=== PATIENT | male | born 1940 | race Caucasian/White ===

== ENCOUNTER 2016-06-02 07:12 | Day surgery (SDC) | payer MEDICARE ==
[2016-06-02] MEDS: Lactated Ringers 1,000 ML IV SCH ×2 (08:05→11:10)
[2016-06-02] MEDS ORDERED: ceFAZolin 2 GM in Sodium Chloride 0.9% 100 ML IV ONE (08:30)
[2016-06-02] MEDS ORDERED: Propofol 200 MG/20 ML SDV IV ONE (08:45)
[2016-06-02] MEDS ORDERED: Midazolam 1 MG/ML 2 ML SDV IV ONE (08:45)
[2016-06-02] MEDS ORDERED: Succinylcholine 200 MG/10 ML MDV IV ONE (08:45)
[2016-06-02] MEDS ORDERED: Neostigmine Methylsulfate 1 MG/ML 5 ML Syringe IV ONE (08:45)
[2016-06-02] MEDS ORDERED: Rocuronium 100 MG/10 ML MDV IV ONE (08:45)
[2016-06-02] MEDS ORDERED: Glycopyrrolate 0.2 MG/ML 5 ML MDV IV ONE (08:45)
[2016-06-02] MEDS ORDERED: fentaNYL 100 MCG/2 ML SDV IV ONE (08:45)
[2016-06-02] MEDS ORDERED: ePHEDrine 50 MG/ML SDV IV ONE (08:45)
[2016-06-02] MEDS ORDERED: Ketorolac 30 MG/ML SDV IVPUSH ONE (08:45)
[2016-06-02] MEDS ORDERED: Ondansetron 4 MG/2 ML SDV IVPUSH ONE (08:45)
[2016-06-02] MEDS ORDERED: Lidocaine 1% with EPINEPHrine 1:100,000 20 ML MDV INFILT ONE (09:06)
[2016-06-02] MEDS ORDERED: Bupivacaine 0.5% 30 ML SDV INFILT ONE (09:07)
--- NOTE | 2016-06-02 09:21 | PCM.OPNOTE ---
- General Post-Op/Procedure Note Date of Surgery/Procedure: 06/02/16 Operative Procedure(s): incisional hernia repair Findings: 1 cm defect repaired primarily Pre Op Diagnosis: incisional hernia ant abd wall Post-Op Diagnosis: Same Anesthesia Technique: General ET tube, Local (6 ml 1 % lido with epi/0.5% bufipicaine) Primary Surgeon: Skyler Camp Anesthesia Provider: Girish Gibson Pathology: none Complications: None Condition: Good Free Text/Narrative:: see dictation [id number]
--- NOTE | 2016-06-02 13:18 | OR ---
DATE OF OPERATION: 06/02/2016 SURGEON: Skyler Camp MD PROCEDURE PERFORMED: Incisional hernia repair. PREOPERATIVE DIAGNOSIS: Incisional hernia, status post open Yazan fundoplication. POSTOPERATIVE DIAGNOSIS: Incisional hernia, status post open Yazan fundoplication. INDICATIONS FOR PROCEDURE: This is a 75-year-old white male, who has a small palpable defect just below his umbilicus. He is status post an open Yazan fundoplication. This causes pain on occasion, and he was offered and accepted repair. INTRAOPERATIVE FINDINGS: As follows: A 1 cm defect was replaced repaired, primarily with interrupted 0 Ethibond. A total of 6 mL of 1:1 mixture of 1% lidocaine with epinephrine and 0.5% bupivacaine was used for the procedure. DESCRIPTION OF OPERATION: After an excellent general anesthetic was administered, the patient was prepped and draped in usual sterile manner. The area over the palpated defect was infiltrated with our local. A 3 cm incision was made over the defect, and careful dissection was carried out. The defect was exposed, and as mentioned was approximately a centimeter in size. Surrounding subcu tissue was dissected free. We actually opened the incision a little further and debrided the edges, and then this defect was closed with interrupted 0 Ethibond, approximating [id number]. The skin was then closed with a running subcu 4-0 Vicryl. Steri-Strips and a Band-Aid was applied. The patient tolerated the procedure well and was taken to recovery room in good condition. /[id number] SELENE/JONAS
[2016-06-02 13:27] VITALS: BP 126/74
== END 2016-06-02 12:44 | disposition home or self-care (01) ==
LOC: FB.SDS 07:12
PROVIDERS: ATTEND Surgery
DX: K43.2 Incisional hernia without obstruction or gangrene (principal); Z98.890 Other specified postprocedural states; Z79.82 Long term (current) use of aspirin; Z79.899 Other long term (current) drug therapy; Z88.8 Allergy status to other drugs, medicaments and biological substances; Z87.891 Personal history of nicotine dependence
CPT/HCPCS: 00752; 49560; J0330; J0690; J1885; J2250; J2405; J2704; J3010; J7030; J7120

== ENCOUNTER 2017-02-22 09:50 | Day surgery (SDC) | payer MEDICARE ==
[~2017-02-22 09:50] MED LIST: Lactated Ringers 1,000 ML IV SCH
[2017-02-22] MEDS ORDERED: Lidocaine 2% 100 MG/5 ML Syringe IVPUSH ONE (11:15)
[2017-02-22] MEDS ORDERED: Propofol 200 MG/20 ML SDV IV ONE (11:15)
[2017-02-22] MEDS ORDERED: Midazolam 1 MG/ML 2 ML SDV IV ONE (11:15)
--- NOTE | 2017-02-22 11:32 | PCM.OPNOTE ---
- General Post-Op/Procedure Note Date of Surgery/Procedure: 02/22/17 Operative Procedure(s): egd with bx Findings: intact Yazan gastroduodenitis Pre Op Diagnosis: abd pain and bloating. s/p Yazan Post-Op Diagnosis: gastroduodenitis. intact Yazan Anesthesia Technique: MAC Primary Surgeon: Skyler Camp Anesthesia Provider: Peg Orozco Pathology: stomach and duodenum Complications: None Condition: Good Free Text/Narrative:: see dictation
[2017-02-22 13:09] VITALS: BP 123/66
--- NOTE | 2017-02-22 17:53 | OR ---
DATE OF OPERATION: 02/22/2017 SURGEON: Skyler Camp MD PROCEDURE PERFORMED: Esophagogastroduodenoscopy with cold forceps biopsy. PREOPERATIVE DIAGNOSIS: Epigastric abdominal pain and bloating, status post Yazan fundoplication. POSTOPERATIVE DIAGNOSIS: Gastric duodenitis with an intact Yazan. INDICATIONS FOR PROCEDURE: This is a 76-year-old white male who has been having some issues with abdominal pain and bloating. He basically notes some pain. Of note, he has had a fundoplication in the past, this was an open procedure. He was offered and accepted an EGD to evaluate his Yazan as well as to see if he had any other more processes going on to lead to his discomfort. DESCRIPTION OF PROCEDURE: After an excellent IV sedation was administered, bite block was inserted. Flexible endoscope was passed without difficulty down the patient's esophagus into the stomach. Stomach was insufflated. Scope was passed through the pylorus to the second portion of the duodenum and slowly withdrawn. The following findings were noted: In the first portion of the duodenum, inflammation, biopsies were taken. In the stomach, some diffuse inflammation what appeared to be some mild gastritis, biopsies were taken. The wrap appears to be intact in the GE junctions at 40 cm. The esophagus itself was unremarkable. Stomach was deflated. Scope was removed. The patient tolerated the procedure well and was taken to the recovery room in good condition. /[id number] /MODL
== END 2017-02-22 12:53 | disposition home or self-care (01) ==
LOC: FB.SDS 09:50
PROVIDERS: ATTEND Surgery
DX: K29.50 Unspecified chronic gastritis without bleeding (principal); K29.80 Duodenitis without bleeding; Z88.8 Allergy status to other drugs, medicaments and biological substances; Z91.09 Other allergy status, other than to drugs and biological substances; Z79.82 Long term (current) use of aspirin; Z79.899 Other long term (current) drug therapy; Z87.891 Personal history of nicotine dependence
CPT/HCPCS: 00740; 43239; 88305; 88342; J2250; J2704; J7120

== ENCOUNTER 2017-07-23 18:51 | Emergency (ER) | payer MEDICARE, OTHER ==
[2017-07-23] MEDS ORDERED: cefTRIAXone 1,000 MG VIAL IM ONE (18:55)
[2017-07-23] MEDS ORDERED: Diphtheria,Pertussis(Acell),Tetanus Vaccine 0.5 ML SDV IM ONE (18:55)
--- NOTE | 2017-07-23 20:14 | EDM.PDOC ---
ED HPI GENERAL MEDICAL PROBLEM - General Chief Complaint: Bite:Animal, Insect Stated Complaint: DOG BIT RIGHT THUMB Time Seen by Provider: 07/23/17 19:00 Source of Information: Reports: Patient, Family History Limitations: Reports: No Limitations - History of Present Illness INITIAL COMMENTS - FREE TEXT/NARRATIVE: 76 y.o.w.m came to the ed shortly after he was bit in his right thumb by a neighbors dog, vaccination unknown. Pt denied any other acute medical issues. BP 145/87 Pulse 76 RR 16 Pulse ox 98% on RA temp 36.8 Onset Date: 07/23/17 Onset Time: 18:30 Duration: Minutes:, Constant, Intermittent Location: Reports: Upper Extremity, Right (thumb) Quality: Reports: Ache, Burning, Dull Severity: Moderate Improves with: Reports: Rest Worsens with: Reports: Movement Context: Reports: Other (Dog bite by neighbors dog) Associated Symptoms: Reports: No Other Symptoms right thumb Pain Score (Numeric/FACES): 4 - Related Data Allergies Allergy/AdvReac Type Severity Reaction Status Date / Time latanoprost Allergy Itching Verified 02/22/17 10:47 pregabalin Allergy Chest Pain Verified 02/22/17 10:47 Galvanized Metals Allergy Other Uncoded 02/22/17 10:47 Home Meds: Home Meds Multivitamin with Minerals [Multiple Vitamin] 1 tab PO DAILY 05/06/16 [History] Aspirin [Adult Low Dose Aspirin EC] 81 mg PO DAILY 02/22/17 [History] Omeprazole 20 mg PO DAILY 07/23/17 [History] Past Medical History HEENT History: Reports: Cataract, Glaucoma, Impaired Vision, Macular Degeneration Cardiovascular History: Reports: Heart Murmur Respiratory History: Reports: Bronchitis, Recurrent, Other (See Below) Other Respiratory History: ASBESTOSIS Gastrointestinal History: Reports: Colon Polyp, GERD, Hiatal Hernia, Other (See Below) Other Gastrointestinal History: VENTRAL HERNIA Genitourinary History: Reports: Other (See Below) Other Genitourinary History: PT REPORTS RECENTLY FOUND POLYPS ON KIDNEYS, 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 Musculoskeletal History: Reports: Arthritis, Back Pain, Chronic, Osteoarthritis Neurological History: Reports: Other (See Below) Other Neuro History: OCC RIGHT LEG PAIN FROM BACK INJURY Psychiatric History: Reports: None Endocrine/Metabolic History: Reports: None Hematologic History: Reports: Blood Transfusion(s) Immunologic History: Reports: None Oncologic (Cancer) History: Reports: None Dermatologic History: Reports: Other (See Below) Other Dermatologic History: ACTINIC KERATOSIS - Infectious Disease History Infectious Disease History: Reports: Chicken Pox, Mumps - Past Surgical History Head Surgeries/Procedures: Reports: None HEENT Surgical History: Reports: Cataract Surgery, Eye Surgery Cardiovascular Surgical History: Reports: None Respiratory Surgical History: Reports: None GI Surgical History: Reports: Appendectomy, Colonoscopy, EGD, Hernia, Abdominal , Yazan Fundoplication Male Surgical History: Reports: None Endocrine Surgical History: Reports: None Neurological Surgical History: Reports: Lumbar Spine Musculoskeletal Surgical History: Reports: None Oncologic Surgical History: Reports: None Dermatological Surgical History: Reports: None Social & Family History - Family History Family Medical History: Noncontributory - Tobacco Use Smoking Status *Q: Former Smoker Years of Tobacco use: 20 Packs/Tins Daily: 0.2 Used Tobacco, but Quit: Yes Month/Year Tobacco Last Used: 30 years ago - Caffeine Use Caffeine Use: Reports: Coffee, Soda - Alcohol Use Days Per Week of Alcohol Use: 1 Number of Drinks Per Day: 1 Total Drinks Per Week: 1 - Recreational Drug Use Recreational Drug Use: No Drug Use in Last 12 Months: No ED ROS GENERAL - Review of Systems Review Of Systems: See Below Constitutional: Reports: No Symptoms HEENT: Reports: No Symptoms Respiratory: Reports: No Symptoms Cardiovascular: Reports: No Symptoms Endocrine: Reports: No Symptoms GI/Abdominal: Reports: No Symptoms : Reports: No Symptoms Musculoskeletal: Reports: Hand Pain (Dog bit to thumb) Skin: Reports: Wound (Dogbite right thumb) Neurological: Reports: No Symptoms Psychiatric: Reports: No Symptoms Hematologic/Lymphatic: Reports: No Symptoms Immunologic: Reports: No Symptoms ED EXAM, ANIMAL BITE - Physical Exam Exam: See Below Exam Limited By: No Limitations General Appearance: Alert, WD/WN, Mild Distress Eye Exam: Bilateral Eye: Normal Inspection Ears: Normal External Exam Nose: Normal Inspection Throat/Mouth: Normal Inspection, Normal Lips Head: Atraumatic, Normocephalic Neck: Normal Inspection, Supple, Non-Tender, Full Range of Motion Respiratory/Chest: No Respiratory Distress, Lungs Clear, Normal Breath Sounds Cardiovascular: Normal Peripheral Pulses, Regular Rate, Rhythm, No Edema, No Gallop, No JVD, No Murmur, No Rub Peripheral Pulses: 1+: Radial (L) GI/Abdominal: Normal Bowel Sounds, Soft, Non-Tender, No Organomegaly, No Abnormal Bruit, No Mass (Male) Exam: Deferred Rectal (Males) Exam: Deferred Back Exam: Normal Inspection, Full Range of Motion Extremities: Normal Range of Motion, Normal Capillary Refill, Joint Swelling, Other (left thumb: Dog bite, complex with exposed/ gfx distal phalanxs right thumb. ) Neurological: Alert, Oriented, CN II-XII Intact, Normal Cognition, Normal Gait, No Motor/Sensory Deficits Psychiatric: Normal Affect, Normal Mood Skin Exam: Normal Color, Other (open communinuted tuft fx distal phalanx right thumb) Lymphadenopathy: Bilateral: No Adenopathy Course - Vital Signs Text/Narrative:: 76 y.o.w.m came to the ed shortly after he was bit in his right thumb by a neighbor's dog, vaccination unknown. Pt denied any other acute medical issues. BP 145/87 Pulse 76 RR 16 Pulse ox 98% on RA temp 36.8. Please see Nursing note for PMH PE: 76 y.o.w.f came to the ed after bit by the neighbors dog, vaccination hx unknown Imaging: open, comminuted right distal thumb fracture Impression: Dog bite right thumb, open comminuted right distal phalanx of thumb , bone exposed. Tx: Td, Rocephine, W/T dressing, Wound care/dressing. Police [facility], [place] was informed by the nurse 7.45 pm Consultation: Dr. Camp, Surgeon: Too complicated for him to take care of, sent pt to [place] 8.05 pm Consultation : Dr. Sahu< hand surgeon: Accepted pt for further care, sent pt to the ED [facility], he will be called by the EDMD 8.36 pm Consultation: Dr. Rao, EDMD: Accepted the pt for further care. Will Call Dr. Sahu on Pt's arrival Reexam: Improved, pt refused pain meds. His Grans son will bring him to [facility] Plan: D/C with instruction. Pt's grandson will take pt to the [place] ED -[facility]-now Last Recorded V/S: Last Vital Signs Temp 37.1 C 07/23/17 19:00 Pulse 97 07/23/17 19:00 Resp 17 07/23/17 19:00 BP 145/87 H 07/23/17 19:00 Pulse Ox 97 07/23/17 19:00 - Orders/Labs/Meds Orders: Active Orders 24 hr Category Date Time Status Vaccines to be Administered [RC] PER UNIT ROUTINE Care 07/23/17 18:56 Active Fingers Thumb Rt F5 [CR] Stat Exams 07/23/17 18:52 Taken Meds: Medications Discontinued Medications Generic Name Dose Route Start Last Admin Trade Name Rajesh PRN Reason Stop Dose Admin Ceftriaxone Sodium 1,000 mg 07/23/17 18:55 07/23/17 19:12 Rocephin IM 07/23/17 18:56 1,000 mg ONETIME ONE Administration Diphtheria/Tetanus/Acell Pertussis 0.5 ml 07/23/17 18:55 07/23/17 19:12 Adacel IM 07/23/17 18:56 0.5 ml .ONCE ONE Administration Departure - Departure Time of Disposition: 20:52 Disposition: DC/Tfer to [facility] Condition: Fair Clinical Impression: Dog bite of extremity - Discharge Information Referrals: Satish García MD [Primary Care Provider] - Forms: ED Department Discharge - My Orders Last 24 Hours: My Active Orders 07/23/17 18:52 Fingers Thumb Rt F5 [CR] Stat 07/23/17 18:56 Vaccines to be Administered [RC] PER UNIT ROUTINE - Assessment/Plan Last 24 Hours: My Active Orders 07/23/17 18:52 Fingers Thumb Rt F5 [CR] Stat 07/23/17 18:56 Vaccines to be Administered [RC] PER UNIT ROUTINE
[2017-07-23 21:02] VITALS: BP 163/93
--- NOTE | 2017-07-24 12:30 | CR ---
INDICATION: Dog bit right thumb. RIGHT THUMB: Three views of the right thumb revealed severely comminuted fracture of the shaft and ungual tuft, with loss of portions of the ungual tuft and soft tissues of the tip of the thumb. Degenerative changes are also noted of moderate degree at the first metacarpophalangeal joint, relatively minimally at the interphalangeal joint of the thumb and to a mild degree at the first metacarpal-carpal joint. MTDD
== END 2017-07-23 21:00 ==
LOC: FB.ED 18:51
DX: S62.521B Displaced fracture of distal phalanx of right thumb, initial encounter for open fracture (principal); K21.9 Gastro-esophageal reflux disease without esophagitis; Z23 Encounter for immunization; Z87.891 Personal history of nicotine dependence; Z79.82 Long term (current) use of aspirin; Z79.899 Other long term (current) drug therapy; Z88.8 Allergy status to other drugs, medicaments and biological substances; W54.0XXA Bitten by dog, initial encounter
CPT/HCPCS: 73140; 90471; 90715; 96372; 99284; J0696

== ENCOUNTER 2020-04-01 06:45 | Day surgery (SDC) | payer BC, MEDICARE ==
[~2020-04-01 06:45] MED LIST changes: -Lactated Ringers 1,000 ML IV SCH; +Sodium Chloride 0.9% 10 ML Syringe FLUSH PRN
[2020-04-01] MEDS ORDERED: Lidocaine 2% 5 ML SDV INJECT ONE (06:46)
[2020-04-01] MEDS ORDERED: Glycopyrrolate 0.2 MG/ML 5 ML MDV IV ONE (06:46)
[2020-04-01] MEDS ORDERED: Propofol 200 MG/20 ML SDV IV ONE (06:46)
[2020-04-01] MEDS: Lactated Ringers 1,000 ML IV SCH (07:20)
--- NOTE | 2020-04-01 08:13 | PCM.OPNOTE ---
- General Post-Op/Procedure Note Date of Surgery/Procedure: 04/01/20 Operative Procedure(s): egd with biopsy Findings: distended stomach mild gastroduodenitis Pre Op Diagnosis: epigastric abd pain and wt loss Post-Op Diagnosis: gastroduodenitis Anesthesia Technique: ISIDRO Primary Surgeon: Skyler Camp Anesthesia Provider: Satish Eaton Pathology: stomach and duodenum Complications: None Condition: Good Free Text/Narrative:: see dictation [id number]
--- NOTE | 2020-04-01 09:37 | OR ---
DATE OF OPERATION: 04/01/2020 SURGEON: Skyler Camp MD PROCEDURE PERFORMED: Esophagogastroduodenoscopy with cold forceps biopsy. PREOPERATIVE DIAGNOSIS: History of epigastric pain, unexplained weight loss. POSTOPERATIVE DIAGNOSIS: Markedly distended bowel stomach and mild gastroduodenitis. INDICATIONS FOR PROCEDURE: Mr. Smyth is an 79-year-old man who has had a history recently of unexplained weight loss. In addition, he has some abdominal pain, which occurs mainly when he eats. Of note, he has had a Yazan fundoplication in the past. He was offered and accepted an EGD as part of his workup. DESCRIPTION OF OPERATION: After an excellent IV sedation was administered, the bite block was inserted. The flexible endoscope was passed without difficulty down the patient's esophagus into the stomach. The stomach was insufflated. It was noted on insufflation to be very markedly distendable to the point that it was difficult to get the scope to advance through the pylorus. We were able to do this and advance the scope to the second portion of the duodenum and slowly withdraw. Following findings were noted. There was no evidence of any type of outlet obstruction at least in the area of the pylorus. The first portion of the duodenum demonstrates a little bit mild erythema, this was biopsied. Antrum, very mild gastritis appears to be present and biopsies were taken of the antrum along the greater curvature. GE junction was fixed. There appeared to be possibly a slight spiral valving, but the scope was able to advance very easily through this region. No marked erythema was noted and the esophagus was essentially unremarkable and no marked distensibility was noted. The patient tolerated the procedure well. This was done after deflating the stomach. There is an appearance of possible motility issues. We had raised the possibility of possible intestinal angina as well. We will proceed with gastric emptying study as part of the workup. /[id number] /MODL
[2020-04-01 09:49] VITALS: BP 138/71; PULSE 61
== END 2020-04-01 09:38 | disposition home or self-care (01) ==
LOC: FB.SDS 06:45
PROVIDERS: ATTEND Surgery
DX: K29.50 Unspecified chronic gastritis without bleeding (principal); K31.89 Other diseases of stomach and duodenum; K29.80 Duodenitis without bleeding; Z88.8 Allergy status to other drugs, medicaments and biological substances; Z79.899 Other long term (current) drug therapy; Z98.890 Other specified postprocedural states; Z87.891 Personal history of nicotine dependence
CPT/HCPCS: 00731; 36415; 43239; 80048; 88305; 88342; J2001; J2704; J3490; J7120

== ENCOUNTER 2020-10-11 18:03 | Emergency (ER) | payer MEDICARE ==
[2020-10-11 18:28] VITALS: PULSE 80
[2020-10-11] MEDS ORDERED: hydrALAZINE 10 MG Tab PO ONE (18:49)
--- NOTE | 2020-10-11 19:01 | EDM.PDOC ---
ED HPI GENERAL MEDICAL PROBLEM - General Chief Complaint: Chemical Exposure Stated Complaint: INHALED CHEMICALS Time Seen by Provider: 10/11/20 18:20 Source of Information: Reports: Patient History Limitations: Reports: No Limitations - History of Present Illness INITIAL COMMENTS - FREE TEXT/NARRATIVE: 80-year-old gentleman states that he was cleaning out his freezer and left a bag of fish that rotted. He tried to clean out the smell by spraying Lysol and thinks that he may have exposed himself and hurt his lungs. He has a past medical history significant for asbestosis and a very distant smoking history, he quit smoking 30 years ago. He came to emergency department for evaluation because of fear of poisoning/exposure. On admission to the emergency department his blood pressure was found to be 161/82. He states that his blood pressure runs in the 1 teens over 80s normally. He has no other concerns or complaints and specifically denies chest pain, nausea, vomiting, and shortness of breath. - Related Data Allergies Allergy/AdvReac Type Severity Reaction Status Date / Time pregabalin Allergy Chest Pain Verified 10/11/20 18:12 Galvanized Metals Allergy Other Uncoded 10/11/20 18:12 Home Meds: Home Meds Aspirin [Adult Low Dose Aspirin EC] 81 mg PO DAILY 02/22/17 [History] Omeprazole 20 mg PO DAILY 07/23/17 [History] Carboxymethylcellulose Sodium [Artificial Tears] 1 drop EYEBOTH Q4HR PRN 03/31/20 [History] Cholecalciferol (Vitamin D3) [Vitamin D3] 25 mcg PO DAILY 03/31/20 [History] Metoclopramide [Reglan] 5 mg PO BIDMEALS 03/31/20 [History] Tamsulosin [Flomax] 0.4 mg PO DAILY 03/31/20 [History] traZODone HCl [Trazodone HCl] 25 mg PO BEDTIME PRN 03/31/20 [History] Cyanocobalamin (Vitamin B12) [Vitamin B12] 500 mcg PO DAILY 04/01/20 [History] Past Medical History HEENT History: Reports: Cataract, Glaucoma, Impaired Vision, Macular Degeneration, Other (See Below) Other HEENT History: SENILE NUCLEAR SCLEROSIS Cardiovascular History: Reports: Heart Murmur 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 Respiratory History: Reports: Bronchitis, Recurrent, Other (See Below) Other Respiratory History: ASBESTOSIS Gastrointestinal History: Reports: Chronic Constipation, Colon Polyp, GERD, Hiatal Hernia, Other (See Below) Other Gastrointestinal History: VENTRAL HERNIA Genitourinary History: Reports: Other (See Below) Other Genitourinary History: PT REPORTS RECENTLY FOUND POLYPS ON KIDNEYS, 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 Musculoskeletal History: Reports: Arthritis, Back Pain, Chronic, Osteoarthritis Other Musculoskeletal History: FOREIGN BODY IN LEFT FOOT Neurological History: Reports: Other (See Below) Other Neuro History: OCC RIGHT LEG PAIN FROM BACK INJURY Psychiatric History: Reports: None Endocrine/Metabolic History: Reports: None Hematologic History: Reports: Blood Transfusion(s) Immunologic History: Reports: None Oncologic (Cancer) History: Reports: None Dermatologic History: Reports: Other (See Below) Other Dermatologic History: ACTINIC KERATOSIS - Infectious Disease History Infectious Disease History: Reports: Chicken Pox, Mumps - Past Surgical History Head Surgeries/Procedures: Reports: None HEENT Surgical History: Reports: Cataract Surgery, Eye Surgery Cardiovascular Surgical History: Reports: None Respiratory Surgical History: Reports: None GI Surgical History: Reports: Appendectomy, Colonoscopy, EGD, Hernia, Abdominal, Yazan Fundoplication Male Surgical History: Reports: None Endocrine Surgical History: Reports: None Neurological Surgical History: Reports: Lumbar Spine Musculoskeletal Surgical History: Reports: Other (See Below) Other Musculoskeletal Surgeries/Procedures:: RIGHT THUMB TIP DEBRIDEMENT Oncologic Surgical History: Reports: None Dermatological Surgical History: Reports: Other (See Below) Social & Family History - Family History Family Medical History: No Pertinent Family History - Caffeine Use Caffeine Use: Reports: Coffee, Soda ED ROS GENERAL - Review of Systems Review Of Systems: See Below Constitutional: Reports: No Symptoms HEENT: Reports: No Symptoms Respiratory: Reports: No Symptoms Cardiovascular: Reports: No Symptoms Endocrine: Reports: No Symptoms GI/Abdominal: Reports: No Symptoms : Reports: No Symptoms Musculoskeletal: Reports: No Symptoms Skin: Reports: No Symptoms Neurological: Reports: No Symptoms Psychiatric: Reports: Anxiety Hematologic/Lymphatic: Reports: No Symptoms Immunologic: Reports: No Symptoms ED EXAM, BURN/SMOKE INHALATION - Physical Exam Exam: See Below Exam Limited By: No Limitations General Appearance: Alert, WD/WN, No Apparent Distress, Anxious Head: No Symptoms Neck: No Symptoms Respiratory: No Respiratory Distress, Lungs Clear, Normal Breath Sounds Cardiovascular: Normal Peripheral Pulses, Regular Rate, Rhythm, No Edema, Systolic Murmur, Gallop/S3 GI/Abdominal: Normal Bowel Sounds, Non-Tender Neurological: Alert, Oriented, CN II-XII Intact Psychiatric: Anxious Skin Exam: Warm, Dry, Intact Course - Vital Signs Text/Narrative:: Patient appeared significantly anxious over his exposure and had elevated blood pressure which was very abnormal for him. He was treated with hydralazine, 10 mg x 2 and 1 dose of hydroxyzine, 25 mg. After resting in a cool dark room his blood pressure is now 151/79. He also had anxiety over worrying about his animals at home. He will be discharged to home and instructed to follow-up with his primary care physician. I believe that it is likely that his hypertension was secondary to significant anxiety secondary to exposure and worry over his dogs. Last Recorded V/S: Last Vital Signs Temp 37.7 C 10/11/20 18:15 Pulse 80 10/11/20 18:15 Resp 18 10/11/20 18:15 BP 180/87 H 10/11/20 21:27 Pulse Ox 94 L 10/11/20 18:15 - Orders/Labs/Meds Meds: Medications Discontinued Medications Generic Name Dose Route Start Last Admin Trade Name Rajesh PRN Reason Stop Dose Admin Hydralazine HCl 10 mg 10/11/20 18:49 10/11/20 19:16 Hydralazine 10 Mg Tab PO 10/11/20 18:50 10 mg NOW ONE Administration Hydralazine HCl 10 mg 10/11/20 21:15 10/11/20 21:27 Hydralazine 10 Mg Tab PO 10/11/20 21:16 10 mg NOW STA Administration Hydroxyzine HCl 25 mg 10/11/20 20:19 10/11/20 20:28 Hydroxyzine Hcl 25 Mg Tab PO 10/11/20 20:20 25 mg ONETIME ONE Administration Departure - Departure Time of Disposition: 21:44 Disposition: Home, Self-Care 01 Condition: Good Clinical Impression: Exposure to chemical inhalation - Discharge Information *PRESCRIPTION DRUG MONITORING PROGRAM REVIEWED*: Not Applicable *COPY OF PRESCRIPTION DRUG MONITORING REPORT IN PATIENT VANESSA: Not Applicable Forms: ED Department Discharge Sepsis Event Note (ED) - Evaluation Sepsis Screening Result: No Definite Risk - Focused Exam Vital Signs: Vital Signs Temp Pulse Resp BP BP Pulse Ox 10/11/20 21:27 180/87 H 10/11/20 19:16 177/95 H 10/11/20 18:15 37.7 C 80 18 161/82 H 94 L
[2020-10-11] MEDS ORDERED: hydrOXYzine HCl 25 MG Tab PO ONE (20:19)
[2020-10-11] MEDS ORDERED: hydrALAZINE 10 MG Tab PO STA (21:15)
[2020-10-11 21:29] VITALS: BP 180/87
== END 2020-10-11 22:25 | disposition home or self-care (01) ==
LOC: FB.ED 18:03
DX: T65.891A Toxic effect of other specified substances, accidental (unintentional), initial encounter (principal); I10 Essential (primary) hypertension
CPT/HCPCS: 99283; A9270-GY

== ENCOUNTER 2020-10-12 03:22 | Emergency (ER) | payer MEDICARE ==
--- NOTE | 2020-10-12 03:54 | EDM.PDOC ---
ED HPI GENERAL MEDICAL PROBLEM - General Chief Complaint: Chest Pain Stated Complaint: BLOOD PRESSURE Time Seen by Provider: 10/12/20 03:30 Source of Information: Reports: Patient - History of Present Illness INITIAL COMMENTS - FREE TEXT/NARRATIVE: 80-year-old gentleman came to the emergency department late last evening for evaluation after being exposed to Lysol in an enclosed space. The exposure caus ed him to have some shortness of breath and due to a history of lung disease including asbestosis he came in for evaluation. He had normal vital signs and no respiratory symptoms however, he did have elevated blood pressure. He was given hydralazine but his blood pressure remained high so he was given hydroxyzine for anxiety and his blood pressure improved significantly. He felt better and went home. However, after going home he stated that he could not go to sleep and was having difficulty breathing and chest pain that started in his abdomen and moved superiorly to his chest. Currently emergency room for further evaluation. Stated that when he was having this chest pain he did have some warmth but no diaphoresis and he still has subjective shortness of breath. - Related Data Allergies Allergy/AdvReac Type Severity Reaction Status Date / Time pregabalin Allergy Chest Pain Verified 10/12/20 04:27 Galvanized Metals Allergy Other Uncoded 10/11/20 18:12 Home Meds: Home Meds Aspirin [Adult Low Dose Aspirin EC] 81 mg PO DAILY 02/22/17 [History] Omeprazole 20 mg PO DAILY 07/23/17 [History] Carboxymethylcellulose Sodium [Artificial Tears] 1 drop EYEBOTH Q4HR PRN 03/31/20 [History] Cholecalciferol (Vitamin D3) [Vitamin D3] 25 mcg PO DAILY 03/31/20 [History] Metoclopramide [Reglan] 5 mg PO BIDMEALS 03/31/20 [History] Tamsulosin [Flomax] 0.4 mg PO DAILY 03/31/20 [History] traZODone HCl [Trazodone HCl] 25 mg PO BEDTIME PRN 03/31/20 [History] Cyanocobalamin (Vitamin B12) [Vitamin B12] 500 mcg PO DAILY 04/01/20 [History] Past Medical History HEENT History: Reports: Cataract, Glaucoma, Impaired Vision, Macular Degeneration, Other (See Below) Other HEENT History: SENILE NUCLEAR SCLEROSIS Cardiovascular History: Reports: Heart Murmur 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 Respiratory History: Reports: Bronchitis, Recurrent, Other (See Below) Other Respiratory History: ASBESTOSIS Gastrointestinal History: Reports: Chronic Constipation, Colon Polyp, GERD, Hiatal Hernia, Other (See Below) Other Gastrointestinal History: VENTRAL HERNIA Genitourinary History: Reports: Other (See Below) Other Genitourinary History: PT REPORTS RECENTLY FOUND POLYPS ON KIDNEYS, HOWEVER 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 History: Reports: None Musculoskeletal History: Reports: Arthritis, Back Pain, Chronic, Osteoarthritis Other Musculoskeletal History: FOREIGN BODY IN LEFT FOOT Neurological History: Reports: Other (See Below) Other Neuro History: OCC RIGHT LEG PAIN FROM BACK INJURY Psychiatric History: Reports: None Endocrine/Metabolic History: Reports: None Hematologic History: Reports: Blood Transfusion(s) Immunologic History: Reports: None Oncologic (Cancer) History: Reports: None Dermatologic History: Reports: Other (See Below) Other Dermatologic History: ACTINIC KERATOSIS - Infectious Disease History Infectious Disease History: Reports: Chicken Pox, Mumps - Past Surgical History Head Surgeries/Procedures: Reports: None HEENT Surgical History: Reports: Cataract Surgery, Eye Surgery Cardiovascular Surgical History: Reports: None Respiratory Surgical History: Reports: None GI Surgical History: Reports: Appendectomy, Colonoscopy, EGD, Hernia, Abdominal, Yazan Fundoplication Male Surgical History: Reports: None Endocrine Surgical History: Reports: None Neurological Surgical History: Reports: Lumbar Spine Musculoskeletal Surgical History: Reports: Other (See Below) Other Musculoskeletal Surgeries/Procedures:: RIGHT THUMB TIP DEBRIDEMENT Oncologic Surgical History: Reports: None Dermatological Surgical History: Reports: Other (See Below) Social & Family History - Family History Family Medical History: No Pertinent Family History - Caffeine Use Caffeine Use: Reports: Coffee ED ROS GENERAL - Review of Systems Review Of Systems: See Below Constitutional: Reports: Fatigue HEENT: Reports: No Symptoms Respiratory: Reports: Shortness of Breath Cardiovascular: Reports: Chest Pain Endocrine: Reports: No Symptoms GI/Abdominal: Reports: No Symptoms : Reports: No Symptoms Musculoskeletal: Reports: No Symptoms Skin: Reports: No Symptoms Neurological: Reports: No Symptoms Psychiatric: Reports: Anxiety Hematologic/Lymphatic: Reports: No Symptoms Immunologic: Reports: No Symptoms ED EXAM, GENERAL - Physical Exam Exam: See Below Exam Limited By: No Limitations General Appearance: Alert, Anxious, Mild Distress Respiratory/Chest: No Respiratory Distress, Lungs Clear Cardiovascular: Regular Rate, Rhythm, No Edema, No Murmur Peripheral Pulses: 1+: Dorsalis Pedis (L), Dorsalis Pedis (R), 2+: Radial (L), Radial (R) GI/Abdominal: Normal Bowel Sounds, Non-Tender Neurological: Alert, Oriented Psychiatric: Anxious Skin Exam: Warm, Dry Course - Vital Signs Text/Narrative:: Patient fell asleep without any further treatment. His blood pressure has been normal for him while he slept. Troponin was normal. Follow-up troponin at 0 700. EKG showed right bundle branch block, normal sinus rhythm. Last Recorded V/S: Last Vital Signs Temp 36.8 C 10/12/20 03:28 Pulse 64 10/12/20 03:28 Resp 15 10/12/20 03:28 BP 183/99 H 10/12/20 03:28 Pulse Ox 98 10/12/20 03:28 - Orders/Labs/Meds Orders: Active Orders 24 hr Category Date Time Status EKG Documentation Completion [RC] ASDIRECTED Care 10/12/20 03:33 Active EKG Documentation Completion [RC] ROUTINE Care 10/12/20 03:33 Active TROPONIN I [CHEM] Stat Lab 10/12/20 07:00 Ordered EKG 12 Lead [EK] Routine Ther 10/12/20 03:33 Ordered Labs: Laboratory Tests 10/12/20 10/12/20 10/12/20 Range/Units 04:00 04:00 04:00 WBC 7.1 (3.2-10.1) x10-3/uL RBC 4.20 (3.90-5.90) x10(6)uL Hgb 13.0 (12.9-17.7) g/dL Hct 39.1 (38.3-50.1) % MCV 93.1 (80.8-98.7) fL MCH 30.9 (27.0-33.3) pg MCHC 33.2 (28.7-35.3) g/dL RDW 13.4 (12.4-15.0) % Plt Count 184 (117-477) x10(3)uL MPV 8.8 (6.7-11.0) fL Neut % (Auto) 62.0 (40.3-71.8) % Lymph % (Auto) 26.4 (15.8-45.3) % [place] % (Auto) 8.3 (5.5-15.2) % Eos % (Auto) 2.3 (0.1-6.8) % Baso % (Auto) 1.0 (0.3-3.8) % Neut # (Auto) 4.4 (1.7-6.9) x10-3/uL Lymph # (Auto) 1.9 (0.5-4.5) x10-3/uL [place] # (Auto) 0.6 (0.0-1.2) x10-3/uL Eos # (Auto) 0.2 (0.0-0.6) x10-3/uL Baso # (Auto) 0.1 (0.0-0.3) x10-3/uL Sodium 143 (135-145) mmol/L Potassium 3.9 (3.5-5.3) mmol/L Chloride 104 (100-110) mmol/L Carbon Dioxide 31 (21-32) mmol/L BUN 13 (7-18) mg/dL Creatinine 1.1 (0.70-1.30) mg/dL Est Cr Clr Drug Dosing TNP Estimated GFR (MDRD) > 60 (>60) BUN/Creatinine Ratio 11.8 (9-20) Glucose 103 (80-116) mg/dL Calcium 9.3 (8.6-10.2) mg/dL Total Bilirubin 0.8 (0.1-1.3) mg/dL AST 21 (5-25) IU/L ALT 23 (12-36) U/L Alkaline Phosphatase 66 (56-112) IU/L Troponin I 13.3 (4.0-60.3) pg/mL Total Protein 6.7 (6.0-8.0) g/dL Albumin 3.6 (3.2-4.6) g/dL Globulin 3.1 g/dL Albumin/Globulin Ratio 1.2 Departure - Departure Time of Disposition: 07:00 Disposition: Still A Patient 30 Clinical Impression: Anxiety Forms: ED Department Discharge Sepsis Event Note (ED) - Focused Exam Vital Signs: Vital Signs Temp Pulse Resp BP Pulse Ox 10/12/20 03:28 36.8 C 64 15 183/99 H 98 - My Orders Last 24 Hours: My Active Orders 10/12/20 03:33 EKG Documentation Completion [RC] ASDIRECTED EKG Documentation Completion [RC] ROUTINE EKG 12 Lead [EK] Routine 10/12/20 07:00 TROPONIN I [CHEM] Stat - Assessment/Plan Last 24 Hours: My Active Orders 10/12/20 03:33 EKG Documentation Completion [RC] ASDIRECTED EKG Documentation Completion [RC] ROUTINE EKG 12 Lead [EK] Routine 10/12/20 07:00 TROPONIN I [CHEM] Stat
[2020-10-12 06:52] VITALS: BP 134/75; PULSE 55
--- NOTE | 2020-10-12 06:53 | PCM.EKG ---
#1 Interpretation EKG Date: 10/12/20 Time: 03:33 EKG Interpretation Comments: Normal sinus rhythm, rate 58, likely normal axis, right bundle branch block
--- NOTE | 2020-10-12 07:47 | PCM.SN.2 ---
- Free Text/Narrative Note: 80-year-old male who presented to the emergency department twice yesterday with the last ED visit at 3 AM. The initial episode was related to exposure to ice all and another chemical: Some respiratory difficulties at that time. He also had some elevated blood pressure seemed to be quite anxious according to Dr. Hess who saw the patient the patient at that time and the patient was treated with hydralazine and apparently his blood pressure improved and he was discharged. He came back at 3 AM reporting feeling weak and woozy and his blood pressure was 125/80 at that point. She tells me that he was not having any chest pain at that point but the physician, Dr. Hess, did an EKG and some blood tests. EKG was reassuring. It did show a right bundle-branch block but showed no current of injury or ischemia. His initial troponin was normal and all of his blood tests were reassuringly normal. The plan was to allow the patient to sleep here and to monitor him and then repeated his troponin at the 3 hour level. It is turned over to me at the change of shift at the 3 hour troponin being drawn but still pending at this time. The patient was turned over to me at that time, 7 AM. The patient is resting comfortably the patient's blood pressure has been in the 110 to 130 systolic range and no complaints. When I awaken the patient, he is reporting that he feels pretty much back to normal. He has no feelings of weakness or wooziness and he has no chest pain. His blood pressure just prior to me coming into evaluate him was 125/80 but when I awaken him it initially is 148/98 and then the repeat is 150/84. He tells me that he feels improved and he has no feeling of weakness or dizziness. His exam is that he is awake and alert. He is in no respiratory distress. His air movement is good. His pulse is in the 80s. He has well-perfused hands. He moves all of his extremities normally and symmetrically. The 3 hour troponin is back and it is normal as well. The plan, as stated with Dr. Hess, was if the 3 hour troponin level was normal and the patient was symptom-free and his blood pressure was improved, then he can be discharged home with follow-up with his primary provider, Dr. García. I discussed all this with the patient and he feels comfortable with this plan. We will get the patient up and have him walk he continues to be symptom free, he will be discharged. I did discuss with the patient that his blood pressure was somewhat elevated now and I talked him about potentially placing him on a blood pressure medication at this point but he would prefer to wait until he can see his primary provider, Dr. García, and discuss this with him. Assessment: Elevated blood pressure reading. Dizziness. Anxiety. Plan: As above and as per discharge instructions.
== END 2020-10-12 08:15 | disposition home or self-care (01) ==
LOC: FB.ED 03:22
DX: F41.9 Anxiety disorder, unspecified (principal); Z88.5 Allergy status to narcotic agent; Z91.09 Other allergy status, other than to drugs and biological substances; Z79.82 Long term (current) use of aspirin; Z79.899 Other long term (current) drug therapy
CPT/HCPCS: 36415; 80053; 84484; 85025; 93005; 99285-25

== ENCOUNTER 2020-11-06 17:28 | Emergency (ER) | payer MEDICARE ==
[2020-11-06] MEDS ORDERED: hydrALAZINE 10 MG Tab PO PRN (19:39)
--- NOTE | 2020-11-06 19:46 | EDM.PDOC ---
ED HPI GENERAL MEDICAL PROBLEM - General Chief Complaint: General Stated Complaint: HIGH BLOOD PRESSURE Time Seen by Provider: 11/06/20 18:20 Source of Information: Reports: Patient History Limitations: Reports: No Limitations - History of Present Illness INITIAL COMMENTS - FREE TEXT/NARRATIVE: 80-year-old gentleman initially went to the walk-in clinic for evaluation of weakness and lethargy. He states that he had a tooth pulled and has been using a salt water gargle. At the walk-in clinic he was sent to the emergency department because of the late hour. At the walk-in clinic he was found to have elevated blood pressure with a systolic about 180 with a diastolic about 100. In the emergency department his blood pressure has been in the 170s systolic. He denies chest pain, shortness of breath, fever, chills, change in bowel or bladder habits. Again, his initial complaint was weakness and lethargy with a history of recent left mandibular tooth extraction. - Related Data Allergies Allergy/AdvReac Type Severity Reaction Status Date / Time pregabalin Allergy Chest Pain Verified 10/12/20 04:27 Galvanized Metals Allergy Other Uncoded 10/11/20 18:12 Home Meds: Home Meds Aspirin [Adult Low Dose Aspirin EC] 81 mg PO DAILY 02/22/17 [History] Omeprazole 20 mg PO DAILY 07/23/17 [History] Carboxymethylcellulose Sodium [Artificial Tears] 1 drop EYEBOTH Q4HR PRN 03/31/20 [History] Cholecalciferol (Vitamin D3) [Vitamin D3] 25 mcg PO DAILY 03/31/20 [History] Metoclopramide [Reglan] 5 mg PO BIDMEALS 03/31/20 [History] Tamsulosin [Flomax] 0.4 mg PO DAILY 03/31/20 [History] traZODone HCl [Trazodone HCl] 25 mg PO BEDTIME PRN 03/31/20 [History] Cyanocobalamin (Vitamin B12) [Vitamin B12] 500 mcg PO DAILY 04/01/20 [History] Past Medical History HEENT History: Reports: Cataract, Glaucoma, Impaired Vision, Macular Degeneration, Other (See Below) Other HEENT History: SENILE NUCLEAR SCLEROSIS Cardiovascular History: Reports: Heart Murmur 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 Respiratory History: Reports: Bronchitis, Recurrent, Other (See Below) Other Respiratory History: ASBESTOSIS Gastrointestinal History: Reports: Chronic Constipation, Colon Polyp, GERD, Hiatal Hernia, Other (See Below) Other Gastrointestinal History: VENTRAL HERNIA Genitourinary History: Reports: Other (See Below) Other Genitourinary History: PT REPORTS RECENTLY FOUND POLYPS ON KIDNEYS, HOWEVER 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 Musculoskeletal History: Reports: Arthritis, Back Pain, Chronic, Osteoarthritis Other Musculoskeletal History: FOREIGN BODY IN LEFT FOOT Neurological History: Reports: Other (See Below) Other Neuro History: OCC RIGHT LEG PAIN FROM BACK INJURY Psychiatric History: Reports: None Endocrine/Metabolic History: Reports: None Hematologic History: Reports: Blood Transfusion(s) Immunologic History: Reports: None Oncologic (Cancer) History: Reports: None Dermatologic History: Reports: Other (See Below) Other Dermatologic History: ACTINIC KERATOSIS - Infectious Disease History Infectious Disease History: Reports: Chicken Pox, Mumps - Past Surgical History Head Surgeries/Procedures: Reports: None HEENT Surgical History: Reports: Cataract Surgery, Eye Surgery Cardiovascular Surgical History: Reports: None Respiratory Surgical History: Reports: None GI Surgical History: Reports: Appendectomy, Colonoscopy, EGD, Hernia, Abdominal, Yazan Fundoplication Male Surgical History: Reports: None Endocrine Surgical History: Reports: None Neurological Surgical History: Reports: Lumbar Spine Musculoskeletal Surgical History: Reports: Other (See Below) Other Musculoskeletal Surgeries/Procedures:: RIGHT THUMB TIP DEBRIDEMENT Oncologic Surgical History: Reports: None Dermatological Surgical History: Reports: Other (See Below) Social & Family History - Family History Family Medical History: No Pertinent Family History - Caffeine Use Caffeine Use: Reports: Coffee Caffeine Use Comment: 3 cups/day ED ROS GENERAL - Review of Systems Review Of Systems: See Below Constitutional: Reports: Weakness, Fatigue HEENT: Reports: Dental Pain Respiratory: Reports: No Symptoms Cardiovascular: Reports: No Symptoms Endocrine: Reports: No Symptoms GI/Abdominal: Reports: No Symptoms : Reports: No Symptoms Skin: Reports: No Symptoms Neurological: Reports: Weakness Psychiatric: Reports: Anxiety Hematologic/Lymphatic: Reports: No Symptoms Immunologic: Reports: No Symptoms ED EXAM, GENERAL - Physical Exam Exam: See Below Exam Limited By: No Limitations General Appearance: Alert, Anxious Eye Exam: Bilateral Eye: Corneal Abrasion Throat/Mouth: Other (Recently extracted mandibular tooth shows a normal extracted socket with only mild erythema, no purulent discharge, no significant edema in the surrounding gum) Head: Atraumatic, Normocephalic Respiratory/Chest: No Respiratory Distress, Lungs Clear Cardiovascular: Normal Peripheral Pulses, Regular Rate, Rhythm Peripheral Pulses: 2+: Brachial (L), Brachial (R), Dorsalis Pedis (L), Dorsalis Pedis (R) GI/Abdominal: Normal Bowel Sounds Extremities: Pedal Edema Neurological: Alert, Oriented, Normal Cognition Psychiatric: Anxious Skin Exam: Warm, Dry, Intact Course - Vital Signs Text/Narrative:: BNP showed 1203. There is no previous BNP available for comparison. EKG showed significant change from prior EKG this year with significant negative T waves in V2 through V4. Consultation with cardiology through [place] [facility] call recommended transfer to [facility] for further evaluation. Patient remains asymptomatic. Awaiting troponin. Last Recorded V/S: Last Vital Signs Temp 36.7 C 11/06/20 17:30 Pulse 64 11/06/20 17:30 Resp 16 11/06/20 17:30 BP 169/88 H 11/06/20 19:45 Pulse Ox 97 11/06/20 17:30 - Orders/Labs/Meds Orders: Active Orders 24 hr Category Date Time Status EKG Documentation Completion [RC] ASDIRECTED Care 11/06/20 21:46 Active hydrALAZINE [Apresoline] Med 11/06/20 19:39 Active 10 mg PO Q4H PRN EKG 12 Lead [EK] Routine Ther 11/06/20 21:46 Ordered Medication Orders Hydralazine HCl (Hydralazine 10 Mg Tab) 10 mg PO Q4H PRN PRN Reason: Hypertension Last Admin: 11/06/20 19:45 Dose: 10 mg Documented by: DAILY Labs: Laboratory Tests 11/06/20 11/06/20 11/06/20 Range/Units 20:30 20:30 20:30 WBC 7.4 (3.2-10.1) x10-3/uL RBC 4.06 (3.90-5.90) x10(6)uL Hgb 12.2 L (12.9-17.7) g/dL Hct 37.3 L (38.3-50.1) % MCV 92.0 (80.8-98.7) fL MCH 30.0 (27.0-33.3) pg MCHC 32.6 (28.7-35.3) g/dL RDW 13.4 (12.4-15.0) % Plt Count 196 (117-477) x10(3)uL MPV 8.1 (6.7-11.0) fL Neut % (Auto) 67.1 (40.3-71.8) % Lymph % (Auto) 22.5 (15.8-45.3) % [place] % (Auto) 8.1 (5.5-15.2) % Eos % (Auto) 1.3 (0.1-6.8) % Baso % (Auto) 1.0 (0.3-3.8) % Neut # (Auto) 5.0 (1.7-6.9) x10-3/uL Lymph # (Auto) 1.7 (0.5-4.5) x10-3/uL [place] # (Auto) 0.6 (0.0-1.2) x10-3/uL Eos # (Auto) 0.1 (0.0-0.6) x10-3/uL Baso # (Auto) 0.1 (0.0-0.3) x10-3/uL Sodium 142 (135-145) mmol/L Potassium 3.9 (3.5-5.3) mmol/L Chloride 106 (100-110) mmol/L Carbon Dioxide 31 (21-32) mmol/L BUN 11 (7-18) mg/dL Creatinine 1.1 (0.70-1.30) mg/dL Est Cr Clr Drug Dosing TNP Estimated GFR (MDRD) > 60 (>60) BUN/Creatinine Ratio 10.0 (9-20) Glucose 105 (80-116) mg/dL Calcium 8.7 (8.6-10.2) mg/dL Total Bilirubin 0.6 (0.1-1.3) mg/dL AST 28 H D (5-25) IU/L ALT 25 (12-36) U/L Alkaline Phosphatase 67 (56-112) IU/L Troponin I (4.0-60.3) pg/mL NT-Pro-B Natriuret Pep 1203 H* (<=450) pg/mL Total Protein 6.6 (6.0-8.0) g/dL Albumin 3.7 (3.2-4.6) g/dL Globulin 2.9 g/dL Albumin/Globulin Ratio 1.3 / Range/Units 20:30 WBC (3.2-10.1) x10-3/uL RBC (3.90-5.90) x10(6)uL Hgb (12.9-17.7) g/dL Hct (38.3-50.1) % MCV (80.8-98.7) fL MCH (27.0-33.3) pg MCHC (28.7-35.3) g/dL RDW (12.4-15.0) % Plt Count (117-477) x10(3)uL MPV (6.7-11.0) fL Neut % (Auto) (40.3-71.8) % Lymph % (Auto) (15.8-45.3) % [place] % (Auto) (5.5-15.2) % Eos % (Auto) (0.1-6.8) % Baso % (Auto) (0.3-3.8) % Neut # (Auto) (1.7-6.9) x10-3/uL Lymph # (Auto) (0.5-4.5) x10-3/uL [place] # (Auto) (0.0-1.2) x10-3/uL Eos # (Auto) (0.0-0.6) x10-3/uL Baso # (Auto) (0.0-0.3) x10-3/uL Sodium (135-145) mmol/L Potassium (3.5-5.3) mmol/L Chloride (100-110) mmol/L Carbon Dioxide (21-32) mmol/L BUN (7-18) mg/dL Creatinine (0.70-1.30) mg/dL Est Cr Clr Drug Dosing Estimated GFR (MDRD) (>60) BUN/Creatinine Ratio (9-20) Glucose (80-116) mg/dL Calcium (8.6-10.2) mg/dL Total Bilirubin (0.1-1.3) mg/dL AST (5-25) IU/L ALT (12-36) U/L Alkaline Phosphatase (56-112) IU/L Troponin I 17.1 (4.0-60.3) pg/mL NT-Pro-B Natriuret Pep (<=450) pg/mL Total Protein (6.0-8.0) g/dL Albumin (3.2-4.6) g/dL Globulin g/dL Albumin/Globulin Ratio Meds: Medications Generic Name Dose Route Start Last Admin Trade Name Freq PRN Reason Stop Dose Admin Hydralazine HCl 10 mg 11/06/20 19:39 11/06/20 19:45 Hydralazine 10 Mg Tab PO 10 mg Q4H PRN Administration Hypertension Departure - Departure Time of Disposition: 22:55 Disposition: DC/Tfer to Other 70 Clinical Impression: Weakness, Acute electrocardiogram changes - Discharge Information *PRESCRIPTION DRUG MONITORING PROGRAM REVIEWED*: Not Applicable *COPY OF PRESCRIPTION DRUG MONITORING REPORT IN PATIENT VANESSA: Not Applicable Instructions: Weakness Referrals: Satish García MD [Primary Care Provider] - Forms: ED Department Discharge Sepsis Event Note (ED) - Focused Exam Vital Signs: Vital Signs Temp Pulse Resp BP BP Pulse Ox 11/06/20 19:45 169/88 H 11/06/20 17:30 36.7 C 64 16 185/92 H 97 - My Orders Last 24 Hours: My Active Orders 11/06/20 19:39 hydrALAZINE [Apresoline] 10 mg PO Q4H PRN 11/06/20 21:46 EKG Documentation Completion [RC] ASDIRECTED EKG 12 Lead [EK] Routine - Assessment/Plan Last 24 Hours: My Active Orders 11/06/20 19:39 hydrALAZINE [Apresoline] 10 mg PO Q4H PRN 11/06/20 21:46 EKG Documentation Completion [RC] ASDIRECTED EKG 12 Lead [EK] Routine
[2020-11-06 21:28] VITALS: BP 185/92; PULSE 64
--- NOTE | 2020-11-06 23:13 | PCM.EKG ---
#1 Interpretation EKG Date: 11/06/20 Time: 21:46 EKG Interpretation Comments: Sinus rhythm, rate 57, significant ST-T abnormalities in V1 through V5 with ST-T abnormalities in V6, aVL and inferior leads. Compared to prior EKG performed June 2020 has been significant changes
== END 2020-11-07 00:05 | disposition other institution (70) ==
LOC: FB.ED 17:28
DX: R53.1 Weakness (principal); R94.31 Abnormal electrocardiogram [ECG] [EKG]; K21.9 Gastro-esophageal reflux disease without esophagitis; Z79.82 Long term (current) use of aspirin; Z88.8 Allergy status to other drugs, medicaments and biological substances; Z91.048 Other nonmedicinal substance allergy status; Z79.899 Other long term (current) drug therapy
CPT/HCPCS: 36415; 80053; 83880; 84484; 85025; 93005; 99285; A9270

== ENCOUNTER 2021-11-30 16:20 | Observation (INO) | payer MEDICARE ==
[2021-11-30] MEDS ORDERED: Non-Formulary Medication 1 Each (Carboxymethylcellulose Sodium [Artificial Tears] 15 ML Dr EYEBOTH PRN (17:45)
[2021-11-30] MEDS ORDERED: traZODone 50 MG Tab PO PRN (17:45)
[2021-11-30] MEDS ORDERED: Sodium Chloride 0.9% 1,000 ML IV ONE (17:46)
[2021-11-30] MEDS ORDERED: Magnesium Citrate Solution 296 ML Bottle PO ONE (17:47)
[2021-11-30] MEDS ORDERED: Metoclopramide 5 MG Tab PO SCH (18:00)
[2021-11-30 18:01] LABS: ESTIMATED GFR 67 mL/min (>60)
[2021-11-30] MEDS ORDERED: Magnesium Hydroxide 400 MG/5 ML Susp 30 ML Cup PO ONE (18:35)
[2021-11-30] MEDS: Acetaminophen/HYDROcodone 325-7.5 MG Tab PO PRN ×2 (18:52→23:18)
[2021-12-01 06:34] LABS: ESTIMATED GFR 75 mL/min (>60)
[2021-12-01] MEDS ORDERED: Magnesium Citrate Solution 296 ML Bottle PO ONE (07:39)
[2021-12-01] MEDS ORDERED: Tamsulosin 0.4 MG Cap.ER PO SCH (09:00)
[2021-12-01] MEDS ORDERED: Aspirin 81 MG Tab.EC PO SCH (09:00)
[2021-12-01] MEDS ORDERED: Non-Formulary Medication 1 Each (Omeprazole [Omeprazole] 20 MG Cap.Cr) PO SCH (09:00)
[2021-12-01] MEDS ORDERED: Acetaminophen 650 MG Tab.ER PO PRN (09:16)
[2021-12-01] MEDS ORDERED: MIRTAZAPINE 7.5 MG PO PRN (09:16)
[2021-12-01] MEDS ORDERED: Polyethylene Glycol 3350 Powder 17 GM Packet PO SCH (09:30)
[2021-12-01] MEDS ORDERED: Enoxaparin 40 MG/0.4 ML Syringe SUBCUT SCH (09:30)
[2021-12-01] MEDS ORDERED: Pantoprazole 20 MG Tab, Delayed Release PO SCH (10:00)
[2021-12-01] MEDS: Acetaminophen/HYDROcodone 325-7.5 MG Tab PO PRN (16:56)
[2021-12-01 17:38] VITALS: BP 143/75; PULSE 72
[2021-12-01] MEDS ORDERED: SIMETHICONE 125 MG PO SCH (21:00)
== END 2021-12-01 19:40 | disposition home or self-care (01) ==
LOC: FB.MS 17:35
PROVIDERS: ADMIT Student in an Organized Health Care Education/Training Program; ATTEND Student in an Organized Health Care Education/Training Program
DX: K59.09 Other constipation (principal); S22.080A Wedge compression fracture of T11-T12 vertebra, initial encounter for closed fracture; K21.9 Gastro-esophageal reflux disease without esophagitis; M51.35 Other intervertebral disc degeneration, thoracolumbar region; I45.10 Unspecified right bundle-branch block; I50.32 Chronic diastolic (congestive) heart failure; N40.1 Benign prostatic hyperplasia with lower urinary tract symptoms; Z88.8 Allergy status to other drugs, medicaments and biological substances; Z79.82 Long term (current) use of aspirin; Z79.899 Other long term (current) drug therapy; Z98.890 Other specified postprocedural states; Z98.1 Arthrodesis status; Z87.19 Personal history of other diseases of the digestive system
CPT/HCPCS: 36415; 80053; 85025; 96372; A9270; G0378; G0379; J1650; J7030; 99217; 99219

== ENCOUNTER 2022-03-07 23:54 | Emergency (ER) | payer MEDICARE ==
[2022-03-08 01:05] VITALS: BP 116/65; PULSE 70
== END 2022-03-08 00:40 | disposition home or self-care (01) ==
LOC: FB.ED 23:54
DX: R33.9 Retention of urine, unspecified (principal); Z88.8 Allergy status to other drugs, medicaments and biological substances; Z91.048 Other nonmedicinal substance allergy status
CPT/HCPCS: 51702; 81001; 87086; 99283-25

== ENCOUNTER 2022-03-26 10:59 | Emergency (ER) | payer MEDICARE ==
[2022-03-26] MEDS ORDERED: Ibuprofen 600 MG Tab PO ONE (12:06)
[2022-03-26] MEDS ORDERED: Acetaminophen 500 MG Tab PO ONE (12:06)
[2022-03-26] MEDS ORDERED: traMADol 50 MG Tab PO STA (12:06)
[2022-03-26 13:27] LABS: ESTIMATED GFR 75 mL/min (>60)
[2022-03-26] MEDS ORDERED: Sodium Chloride 0.9% 10 ML Syringe FLUSH PRN (13:42)
[2022-03-26] MEDS ORDERED: Aspirin 81 MG Tab.Chew PO ONE (13:57)
[2022-03-26] MEDS ORDERED: Sodium Chloride 0.9% 1,000 ML IV SCH ×2 (14:00→15:15)
[2022-03-26] MEDS ORDERED: Heparin Sodium 5,000 Units/ML Vial IVPUSH ONE (14:31)
[2022-03-26] MEDS ORDERED: Heparin Sodium/0.45% NaCl 500 ML IV SCH (14:45)
[2022-03-26] MEDS ORDERED: cefTRIAXone 1 GM Vial IVPUSH STA (18:01)
[2022-03-26 18:27] VITALS: PULSE 71
[2022-03-26 20:23] VITALS: BP 111/66
== END 2022-03-26 19:10 ==
LOC: FB.ED 10:59
DX: I21.4 Non-ST elevation (NSTEMI) myocardial infarction (principal); I95.9 Hypotension, unspecified; I11.0 Hypertensive heart disease with heart failure; I50.9 Heart failure, unspecified; F43.20 Adjustment disorder, unspecified; K21.9 Gastro-esophageal reflux disease without esophagitis; Z91.048 Other nonmedicinal substance allergy status; Z88.8 Allergy status to other drugs, medicaments and biological substances
CPT/HCPCS: 36415; 71045; 80053; 81001; 83605; 83880; 84484; 85025; 85610; 85730; 87086; 87088; 87186; 93005; 93010; 96365; 96366; 96375; 99284-25; 99285; A9270-GY; J0696; J1644; J7030

== ENCOUNTER 2022-07-31 18:29 | Emergency (ER) | payer MEDICARE ==
[2022-07-31 19:31] LABS: BLOOD UREA NITROGEN,BUN 21 mg/dL (7-18); BUN/CREATININE RATIO 23.3 (9-20); CALCIUM 9.4 mg/dL (8.6-10.2); CARBON DIOXIDE,CO2 30 mmol/L (21-32); CHLORIDE,CL 99 mmol/L (100-110); CREATININE 0.9 mg/dL (0.70-1.30); ESTIMATED GFR 85 mL/min (>60); GLUCOSE RANDOM 127 mg/dL (80-116); HEMATOCRIT 38.5 % (38.3-50.1); HEMOGLOBIN 12.6 g/dL (12.9-17.7); MEAN CORPUSCULAR HEMOGLOBIN 30.4 pg (27.0-33.3); MEAN CORPUSCULAR HGB CONC 32.8 g/dL (28.7-35.3); MEAN CORPUSCULAR VOLUME 92.8 fL (80.8-98.7); MEAN PLATELET VOLUME 8.8 fL (6.7-11.0); PLATELET COUNT,PLT 168 x10(3)uL (117-477); POTASSIUM,K 4.1 mmol/L (3.5-5.3); RED BLOOD CELL COUNT 4.15 x10(6)uL (3.90-5.90); RED CELL DISTRIBUTION WIDTH 13.9 % (12.4-15.0); SODIUM,NA 137 mmol/L (135-145); WHITE BLOOD CELL COUNT,WBC 14.1 x10-3/uL (3.2-10.1)
[2022-07-31 19:33] VITALS: BP 160/95; PULSE 87
[2022-07-31 19:37] LABS: A/G RATIO 1.2; ALANINE AMINOTRANSFERASE,ALT 20 U/L (12-36); ALBUMIN 4.2 g/dL (3.2-4.6); ALKALINE PHOSPHATASE 95 IU/L (56-112); ASPARTATE AMNIOTRANSFERASE,AST 31 IU/L (5-25); BILIRUBIN TOTAL 0.5 mg/dL (0.1-1.3); PROTEIN TOTAL,TP 7.7 g/dL (6.0-8.0)
[2022-07-31 19:44] LABS: PRO B-TYPE NATRIUR PEPT,BNPPRO 994 pg/mL (<=450); TROPONIN I 16.9 pg/mL (4.0-60.3)
[2022-07-31 19:54] LABS: C-REACTIVE PROTEIN < 0.2 mg/dL (0.5-0.9)
[2022-07-31] MEDS ORDERED: Acetaminophen/HYDROcodone 325-5 MG Tab PO ONE (20:28)
[2022-07-31 20:43] LABS: BAND PERCENT MAN 3 % (0-6); LYMPHOCYTES PERCENT MAN 4 % (13-37); MONOCYTES PERCENT MAN 2 % (4-12); SEG NEUTROPHILS PERCENT MAN 91 % (46-82)
[2022-07-31] MEDS ORDERED: Morphine 4 MG/ML VIAL IM ONE (21:15)
[2022-07-31 22:53] LABS: D-DIMER QUANTITATIVE 1.3 mg/LFEU (0.0-0.59)
[2022-07-31 22:58] LABS: INR 1.08 (1.00-1.24); PROTHROMBIN TIME 11.1 sec (9.0-11.1); PTT,PARTIAL THROMBOPLSTIN TIME 29.7 SECONDS (24.4-33.2)
[2022-07-31] MEDS ORDERED: Sodium Chloride 0.9% 10 ML Syringe FLUSH PRN (23:12)
[2022-07-31] MEDS ORDERED: Aspirin 81 MG Tab.Chew PO STA (23:13)
== END 2022-07-31 23:22 ==
LOC: FB.ED 18:29
DX: R07.9 Chest pain, unspecified (principal); R77.8 Other specified abnormalities of plasma proteins; Z91.048 Other nonmedicinal substance allergy status; Z87.891 Personal history of nicotine dependence
CPT/HCPCS: 36415; 71046; 80053; 83735; 83880; 84484; 85025; 85379; 85610; 85730; 86140; 96372; 99285; A9270; J2270; J3490

== ENCOUNTER 2023-01-01 07:14 | Emergency (ER) | payer MEDICARE ==
[2023-01-01 07:49] VITALS: BP 156/80; PULSE 79
== END 2023-01-01 10:07 | disposition home or self-care (01) ==
LOC: FB.ED 07:14
DX: R33.9 Retention of urine, unspecified (principal); Z85.51 Personal history of malignant neoplasm of bladder; Z88.8 Allergy status to other drugs, medicaments and biological substances
CPT/HCPCS: 51702; 99283

== ENCOUNTER 2023-01-02 13:41 | Emergency (ER) | payer MEDICARE ==
[2023-01-02 14:56] LABS: BASOPHILS PERCENT AUTO 0.9 % (0.3-3.8); EOSINOPHILS ABSOLUTE AUTO 0.1 x10-3/uL (0.0-0.6); EOSINOPHILS PERCENT AUTO 1.7 % (0.1-6.8); HEMOGLOBIN 10.2 g/dL (12.9-17.7); LYMPHOCYTES ABSOLUTE AUTO 0.9 x10-3/uL (0.5-4.5); LYMPHOCYTES PERCENT AUTO 21.8 % (15.8-45.3); MEAN CORPUSCULAR HEMOGLOBIN 31.2 pg (27.0-33.3); MEAN CORPUSCULAR HGB CONC 33.8 g/dL (28.7-35.3); MEAN CORPUSCULAR VOLUME 92.1 fL (80.8-98.7); MEAN PLATELET VOLUME 8.6 fL (6.7-11.0); MONOCYTES ABSOLUTE AUTO 0.5 x10-3/uL (0.0-1.2); MONOCYTES PERCENT AUTO 11.6 % (5.5-15.2); NEUTROPHILS ABSOLUTE AUTO 2.7 x10-3/uL (1.7-6.9); PLATELET COUNT,PLT 178 x10(3)uL (117-477); RED BLOOD CELL COUNT 3.26 x10(6)uL (3.90-5.90); RED CELL DISTRIBUTION WIDTH 14.3 % (12.4-15.0); WHITE BLOOD CELL COUNT,WBC 4.2 x10-3/uL (3.2-10.1)
[2023-01-02 15:00] LABS: BLOOD UREA NITROGEN,BUN 10 mg/dL (7-18); BUN/CREATININE RATIO 11.1 (9-20); CALCIUM 8.9 mg/dL (8.6-10.2); CARBON DIOXIDE,CO2 30 mmol/L (21-32); CHLORIDE,CL 97 mmol/L (100-110); CREATININE 0.9 mg/dL (0.70-1.30); EST CRCL DRUG DOSING (CG) 58.65 mL/min; ESTIMATED GFR 85 mL/min (>60); GLUCOSE RANDOM 96 mg/dL (80-116); POTASSIUM,K 4.3 mmol/L (3.5-5.3); SODIUM,NA 134 mmol/L (135-145)
[2023-01-02 15:05] LABS: A/G RATIO 1.2; ALANINE AMINOTRANSFERASE,ALT 28 U/L (12-36); ALBUMIN 3.5 g/dL (3.2-4.6); ALKALINE PHOSPHATASE 88 IU/L (56-112); ASPARTATE AMNIOTRANSFERASE,AST 28 IU/L (5-25); BILIRUBIN TOTAL 0.6 mg/dL (0.1-1.3); PROTEIN TOTAL,TP 6.5 g/dL (6.0-8.0)
[2023-01-02 15:29] LABS: BILIRUBIN,URINE NEGATIVE (NEGATIVE); GLUCOSE,URINE NORMAL (NORMAL); KETONES,URINE NEGATIVE (NEGATIVE); LEUKOCYTE ESTERASE,URINE NEGATIVE (NEGATIVE); NITRITE,URINE NEGATIVE (NEGATIVE); OCCULT BLOOD,URINE LARGE (NEGATIVE); PROTEIN,URINE NEGATIVE (NEGATIVE); UROBILINOGEN,URINE NORMAL (NEGATIVE)
[2023-01-02 15:30] LABS: APPEARANCE,URINE CLEAR (CLEAR); BACTERIA,URINE OCCASIONAL (NS); COLOR,URINE YELLOW (YELLOW); SQUAMOUS EPITHELIAL CELLS,UR OCCASIONAL (NS,R,O); WBC,URINE 0-5 (0-5)
[2023-01-02] MEDS ORDERED: Lidocaine 2% HCl 6 ML Jel ONE (16:15)
[2023-01-02 19:47] VITALS: BP 150/57; PULSE 62
== END 2023-01-02 19:00 | disposition home or self-care (01) ==
LOC: FB.ED 13:41
DX: R31.0 Gross hematuria (principal); Z88.8 Allergy status to other drugs, medicaments and biological substances; Z79.02 Long term (current) use of antithrombotics/antiplatelets; Z87.891 Personal history of nicotine dependence
CPT/HCPCS: 36415; 51702; 80053; 81001; 85025; 87086; 99284; A9270

== ENCOUNTER 2023-01-07 23:39 | Emergency (ER) | payer MEDICARE ==
[2023-01-08 03:10] VITALS: BP 161/87; PULSE 75
== END 2023-01-08 00:50 | disposition home or self-care (01) ==
LOC: FB.ED 23:39
DX: R33.9 Retention of urine, unspecified (principal); Z88.8 Allergy status to other drugs, medicaments and biological substances; Z91.09 Other allergy status, other than to drugs and biological substances
CPT/HCPCS: 51702; 99283; C1758

== ENCOUNTER 2024-08-04 20:40 | Emergency (ER) | payer MEDICARE ==
[2024-08-04] MEDS: Sodium Chloride 0.9% 1,000 ML IV ONE (21:11)
[2024-08-04 21:17] LABS: BASOPHILS ABSOLUTE AUTO 0.1 x10-3/uL (0.0-0.3); BASOPHILS PERCENT AUTO 0.9 % (0.3-3.8); EOSINOPHILS ABSOLUTE AUTO 0.1 x10-3/uL (0.0-0.6); EOSINOPHILS PERCENT AUTO 1.7 % (0.1-6.8); HEMATOCRIT 33.7 % (38.3-50.1); HEMOGLOBIN 11.6 g/dL (12.9-17.7); LYMPHOCYTES PERCENT AUTO 11.7 % (15.8-45.3); MEAN CORPUSCULAR HEMOGLOBIN 30.9 pg (27.0-33.3); MEAN CORPUSCULAR HGB CONC 34.3 g/dL (28.7-35.3); MEAN CORPUSCULAR VOLUME 90.1 fL (80.8-98.7); MEAN PLATELET VOLUME 8.3 fL (6.7-11.0); MONOCYTES ABSOLUTE AUTO 0.7 x10-3/uL (0.0-1.2); MONOCYTES PERCENT AUTO 8.9 % (5.5-15.2); NEUTROPHILS ABSOLUTE AUTO 6.4 x10-3/uL (1.7-6.9); NEUTROPHILS PERCENT AUTO 76.8 % (40.3-71.8); PLATELET COUNT,PLT 205 x10(3)uL (117-477); RED BLOOD CELL COUNT 3.74 x10(6)uL (3.90-5.90); RED CELL DISTRIBUTION WIDTH 13.8 % (12.4-15.0); WHITE BLOOD CELL COUNT,WBC 8.3 x10-3/uL (3.2-10.1)
[2024-08-04 21:21] LABS: BLOOD UREA NITROGEN,BUN 21 mg/dL (7-18); BUN/CREATININE RATIO 16.2 (9-20); CALCIUM 8.8 mg/dL (8.6-10.2); CARBON DIOXIDE,CO2 31 mmol/L (21-32); CHLORIDE,CL 102 mmol/L (100-110); CREATININE 1.3 mg/dL (0.70-1.30); ESTIMATED GFR 54 mL/min (>60); GLUCOSE RANDOM 159 mg/dL (80-116); POTASSIUM,K 4.3 mmol/L (3.5-5.3); SODIUM,NA 136 mmol/L (135-145)
[2024-08-04 21:27] LABS: A/G RATIO 1.1; ALANINE AMINOTRANSFERASE,ALT 19 U/L (12-36); ALBUMIN 3.5 g/dL (3.2-4.6); ALKALINE PHOSPHATASE 100 IU/L (56-112); ASPARTATE AMNIOTRANSFERASE,AST 19 IU/L (5-25); BILIRUBIN TOTAL 0.4 mg/dL (0.1-1.3); PROTEIN TOTAL,TP 6.6 g/dL (6.0-8.0)
[2024-08-04 22:12] LABS: BILIRUBIN,URINE NEGATIVE (NEGATIVE); GLUCOSE,URINE NORMAL (NORMAL); KETONES,URINE NEGATIVE (NEGATIVE); LEUKOCYTE ESTERASE,URINE MODERATE (NEGATIVE); NITRITE,URINE POSITIVE (NEGATIVE); OCCULT BLOOD,URINE LARGE (NEGATIVE); PH,URINE 6.5 (5.0-6.5); PROTEIN,URINE 30 mg/dL (NEGATIVE); UROBILINOGEN,URINE NORMAL (NEGATIVE)
[2024-08-04 22:26] LABS: APPEARANCE,URINE CLOUDY (CLEAR); COLOR,URINE YELLOW (YELLOW)
[2024-08-04 22:27] LABS: BACTERIA,URINE MANY (NS); HYALINE CASTS,URINE RARE (NS); RBC,URINE 50-75 (0-5); SQUAMOUS EPITHELIAL CELLS,UR RARE (NS,R,O)
[2024-08-04] MEDS: Sulfamethoxazole/Trimethoprim 800-160 MG Tab PO ONE (22:47)
[2024-08-04 22:52] VITALS: BP 126/81; PULSE 71
== END 2024-08-04 23:02 | disposition home or self-care (01) ==
LOC: FB.ED 20:40
DX: N39.0 Urinary tract infection, site not specified (principal); N49.9 Inflammatory disorder of unspecified male genital organ; Z88.8 Allergy status to other drugs, medicaments and biological substances; Z79.899 Other long term (current) drug therapy; Z90.49 Acquired absence of other specified parts of digestive tract
CPT/HCPCS: 36415; 80053; 81001; 85025; 86140; 87086; 87088; 87186; 96360; 99283-25; 99284; A9270-GY; J7030

== ENCOUNTER 2024-08-20 18:45 | Emergency (ER) | payer MEDICARE ==
[2024-08-20 19:04] LABS: BASOPHILS PERCENT AUTO 0.8 % (0.3-3.8); EOSINOPHILS ABSOLUTE AUTO 0.1 x10-3/uL (0.0-0.6); EOSINOPHILS PERCENT AUTO 2.1 % (0.1-6.8); HEMATOCRIT 34.5 % (38.3-50.1); HEMOGLOBIN 11.5 g/dL (12.9-17.7); LYMPHOCYTES ABSOLUTE AUTO 1.1 x10-3/uL (0.5-4.5); LYMPHOCYTES PERCENT AUTO 17.6 % (15.8-45.3); MEAN CORPUSCULAR HEMOGLOBIN 29.9 pg (27.0-33.3); MEAN CORPUSCULAR HGB CONC 33.4 g/dL (28.7-35.3); MEAN CORPUSCULAR VOLUME 89.6 fL (80.8-98.7); MONOCYTES ABSOLUTE AUTO 0.5 x10-3/uL (0.0-1.2); MONOCYTES PERCENT AUTO 8.1 % (5.5-15.2); NEUTROPHILS ABSOLUTE AUTO 4.6 x10-3/uL (1.7-6.9); NEUTROPHILS PERCENT AUTO 71.4 % (40.3-71.8); PLATELET COUNT,PLT 182 x10(3)uL (117-477); RED BLOOD CELL COUNT 3.85 x10(6)uL (3.90-5.90); RED CELL DISTRIBUTION WIDTH 14.7 % (12.4-15.0); WHITE BLOOD CELL COUNT,WBC 6.4 x10-3/uL (3.2-10.1)
[2024-08-20 19:07] LABS: BLOOD UREA NITROGEN,BUN 24 mg/dL (7-18); BUN/CREATININE RATIO 18.5 (9-20); CALCIUM 8.6 mg/dL (8.6-10.2); CARBON DIOXIDE,CO2 31 mmol/L (21-32); CHLORIDE,CL 101 mmol/L (100-110); CREATININE 1.3 mg/dL (0.70-1.30); EST CRCL DRUG DOSING (CG) 39.37 mL/min; ESTIMATED GFR 54 mL/min (>60); GLUCOSE RANDOM 182 mg/dL (80-116); POTASSIUM,K 4.7 mmol/L (3.5-5.3); SODIUM,NA 135 mmol/L (135-145)
[2024-08-20] MEDS: Sodium Chloride 0.9% 1,000 ML IV SCH (19:22)
[2024-08-20 19:54] LABS: APPEARANCE,URINE TURBID (CLEAR); BILIRUBIN,URINE NEGATIVE (NEGATIVE); COLOR,URINE RED (YELLOW); GLUCOSE,URINE NORMAL (NORMAL); KETONES,URINE NEGATIVE (NEGATIVE); LEUKOCYTE ESTERASE,URINE MODERATE (NEGATIVE); NITRITE,URINE NEGATIVE (NEGATIVE); OCCULT BLOOD,URINE LARGE (NEGATIVE); PROTEIN,URINE 500 mg/dL (NEGATIVE); UROBILINOGEN,URINE NORMAL (NEGATIVE)
[2024-08-20 19:55] LABS: RBC,URINE PACKED (0-5)
[2024-08-20] MEDS: Iopamidol 755 Mg/ML 100 ML Bottle IV SCH (20:37)
[2024-08-20] MEDS: Sulfamethoxazole/Trimethoprim 800-160 MG Tab PO ONE (21:03)
[2024-08-20 23:12] VITALS: BP 158/73; PULSE 71
== END 2024-08-20 22:00 ==
LOC: FB.ED 18:45
DX: N39.0 Urinary tract infection, site not specified (principal); R31.0 Gross hematuria; Z90.49 Acquired absence of other specified parts of digestive tract; Z88.8 Allergy status to other drugs, medicaments and biological substances; Z79.899 Other long term (current) drug therapy
CPT/HCPCS: 36415; 74177; 80048; 81001; 85025; 87086; 87088; 87186; 96360; 96361; 99285; A9270; J7030; Q9967